=== PATIENT | female | born 1990 | race Caucasian/White ===

== ENCOUNTER → 2017-12-27 | Outpatient (CLI) | payer OTHER ==
[~2017-12-27] MED LIST: LIDOCAINE 1% 300 MG/30 ML SDV ONE
--- NOTE | 2017-12-27 10:43 | PDRADPN ---
Radiology Procedure Note Date of Procedure: 12/27/17 Radiologist: Dmitry Carter Anesthesia: Local (Specify) Pre-op Diagnosis: Complex large thyroid cyst Post-op Diagnosis: same Indication: dx/tx Procedure: US aspiration Finding(s): Large complex cystic and solid nodule of the left thyroid. Two 25G FNA specimens obtained from anterior wall of the cyst. Next a 5F Yueh was used to drain almost 100mL of brownish fluid, resulting in near complete decompression. Significant complex tissue posterior to the dominant cyst seen after drainage. Two additional 25G FNAs obtained from this portion. Inf/Abcess present in the surg proc area at time of surgery?: No Complications: none Specimen(s): Four 25G FNAs. 20mL of charter representative fluid.
== END ==
LOC: FIMAGING 08:13
PROVIDERS: ATTEND Family Medicine
PROC: 0G9G3ZZ Drainage of Left Thyroid Gland Lobe, Percutaneous Approach (ICD-10-PCS; principal; 2017-12-27)
DX: E04.2 Nontoxic multinodular goiter (principal)